=== PATIENT | female | born 1995 | race Caucasian/White ===

== ENCOUNTER 2018-02-19 10:49 | Emergency (ER) | payer SELFPAY ==
--- NOTE | 2018-02-19 11:38 | CT ---
CT HEAD NONCONTRAST DATE: 02/19/18 HISTORY: Headache. FINDINGS: No comparison. There is no evidence of acute intracranial hemorrhage or infarct. The ventricles appear normal in siz e, shape, and position. There is no mass effect or shift of midline structures. Visualized paranasal sinuses remain well aerated. IMPRESSION: No acute intracranial abnormalities are demonstrated on noncontrast CT head. POS: [facility]
[2018-02-19] MEDS ORDERED: diphenhydrAMINE 50 MG/ML VIAL ONE (11:43)
[2018-02-19] MEDS ORDERED: Prochlorperazine 10 MG/2 ML VIAL ONE (11:43)
[2018-02-19] MEDS ORDERED: Ketorolac Tromethamine 30 MG/ML VIAL ONE (11:43)
[2018-02-19 11:54] LABS: pH (venous) 7.45 (7.35-7.45)
[2018-02-19 11:56] LABS: Base Excess -1.7 mEq/L (-2 - +2); Hemoglobin (Hb) 12.8 g/dL (11.7-15.5)
[2018-02-19 12:09] LABS: ALT (SGPT) 210 U/L (8-55); AST (SGOT) 114 U/L (5-34); Albumin 4.1 g/dL (3.5-5.0); Alkaline Phosphatase 115 U/L (40-150); Anion Gap 13 mmol/L (10-20); BUN (Urea Nitrogen) 12 mg/dL (7.0-18.7); Bilirubin, Total 1.4 mg/dL (0.2-1.2); Calc. Creatinine Clearance 0 mL/min (70-130); Calcium 8.9 mg/dL (7.8-10.44); Carbon Dioxide 21 mmol/L (22-29); Chloride 108 mmol/L (98-107); Estimated GFR-MDRD Greater than 90; Globulin 2.9 g/dL (2.4-3.5); Glucose 98 mg/dL (70-105); Potassium 3.9 mmol/L (3.5-5.1); Sodium 138 mmol/L (136-145)
[2018-02-19 12:11] LABS: Alcohol Less than 10 mg/dL (Less than 10); Salicylate Less than 8.0 mg/dL (15.0-30.0)
[2018-02-19 12:12] LABS: Band 10 % (5-11); Eosinophils 3 % (0-10); Hemoglobin 12.4 g/dL (12.0-16.0); Lymphocytes 44 % (21-51); MDiff Complete? YES; Mean Corpuscular HGB CONC 35.9 g/dL (32.0-36.0); Mean Corpuscular Hemoglobin 29.9 pg (27.0-31.0); Mean Corpuscular Volume 83.2 fl (81.0-99.0); Mean Platelet Volume 10.1 fL (7.4-10.4); Monocytes 17 % (0-10); Neutrophil 21 % (42-75); Platelet Count 123 thou/uL (130-400); Reactive Lymphocytes 5 % (0-10); Red Blood Cell (RBC) Count 4.16 mill/uL (4.20-5.40); White Blood Cell (WBC) Count 6.7 thou/uL (4.8-10.8)
== END 2018-02-19 12:38 | disposition home or self-care (01) ==
LOC: BURERS 10:49
DX: R51 Headache (principal); J45.909 Unspecified asthma, uncomplicated; F41.9 Anxiety disorder, unspecified; F17.210 Nicotine dependence, cigarettes, uncomplicated
CPT/HCPCS: 70450; 80053; 80307; 82805; 85025; 96361; 96374; 96375; J0780; J1200; J1885